=== PATIENT | male | born 1965 | race Caucasian/White ===

== ENCOUNTER 2017-10-31 11:03 | Observation (INO) | payer MEDICARE, MEDICAID, OTHER ==
[2017-10-31 11:43] LABS: ADD MAN DIFF? NO
[2017-10-31 11:46] LABS: BASOPHILS % 0.3 % (0.0-2.0); EOSINOPHILS # 0.1 10^3/ul (0.0-0.5); HEMATOCRIT 38.5 % (42.0-52.0); HEMOGLOBIN 12.8 g/dl (14.0-18.0); LYMPHOCYTES # 1.4 10^3/ul (0.8-2.9); LYMPHOCYTES % 13.9 % (15.0-51.0); MEAN CORPUSCULAR HEMOGLOBIN 31.9 pg (29.0-33.0); MEAN CORPUSCULAR HGB CONC 33.2 g/dl (32.0-37.0); MEAN PLATELET VOLUME 8.8 fl (7.4-10.4); MONOCYTES % 9.4 % (0.0-11.0); NEUTROPHIL # 7.8 10^3/ul (1.6-7.5); PLATELET COUNT 428 10^3/UL (140-415); RED BLOOD COUNT 4.01 10^6/ul (4.70-6.10); RED CELL DISTRIBUTION WIDTH 12.9 % (11.5-14.5)
[2017-10-31 11:46] LABS: WHITE BLOOD COUNT 10.4 10^3/ul (4.8-10.8)
[2017-10-31 12:07] LABS: ANION GAP 15 (8-16); BLOOD UREA NITROGEN 10 mg/dl (7-20); CARBON DIOXIDE 31 mmol/L (21-31); CHLORIDE 97 mmol/L (97-110); CREATININE 0.67 mg/dl (0.61-1.24); GLUCOSE 86 mg/dl (70-220); POTASSIUM 4.1 mmol/L (3.5-5.1); SODIUM 139 mmol/L (135-144)
[2017-10-31 12:19] LABS: TROPONIN-I < 0.010 ng/ml (0.000-0.120)
[2017-10-31] MEDS ORDERED: OLANZAPINE 2.5 MG TAB PO (15:00)
[2017-10-31] MEDS ORDERED: HYDROCODONE/APAP (5/325) TAB PO ×2 (15:00)
[2017-10-31] MEDS ORDERED: morphine 2 MG INJ IV (15:00)
[2017-10-31] MEDS ORDERED: ACETAMINOPHEN 325 MG TAB PO (15:00)
[2017-10-31] MEDS ORDERED: NACL 0.9% 3 ML SYG IV (15:00)
[2017-10-31 17:16] LABS: CREATINE KINASE 47 IU/L (23-200)
[2017-10-31 17:21] LABS: CK INDEX 1.1; CK-MB 0.51 ng/ml (0.0-2.4); TROPONIN-I < 0.010 ng/ml (0.000-0.120)
[2017-10-31] MEDS: FISH OIL 1,000 MG CAP PO (17:28)
[2017-10-31] MEDS: METOPROLOL 25 MG TAB PO (21:00)
[2017-10-31] MEDS: DOCUSATE SODIUM 10 MG/ML (10ML CUP) PO (21:04)
[2017-10-31] MEDS: LAMOTRIGINE 100 MG TAB PO (21:05)
[2017-10-31] MEDS: SENNA TAB PO (21:05)
[2017-10-31] MEDS: carBAMAZepine CHEW 100 MG CHEW PO (21:05)
[2017-10-31] MEDS: LEVETIRACETAM 500 MG TAB PO (21:05)
[2017-11-01 01:41] LABS: CREATINE KINASE 47 IU/L (23-200)
[2017-11-01 01:53] LABS: CK INDEX 1.2; CK-MB 0.58 ng/ml (0.0-2.4); TROPONIN-I < 0.010 ng/ml (0.000-0.120)
[2017-11-01] MEDS: PANTOPRAZOLE (EC) 40 MG TAB PO (05:35)
[2017-11-01] MEDS: ASPIRIN 81 MG TAB PO (08:46)
[2017-11-01] MEDS: DOCUSATE SODIUM 10 MG/ML (10ML CUP) PO ×2 (08:48→21:14)
[2017-11-01] MEDS: LEVETIRACETAM 500 MG TAB PO ×2 (08:48→21:13)
[2017-11-01] MEDS: carBAMAZepine CHEW 100 MG CHEW PO ×3 (08:48→21:13)
[2017-11-01] MEDS: CHOLECALCIFEROL 400 UNITS TAB PO (08:48)
[2017-11-01] MEDS: FISH OIL 1,000 MG CAP PO (08:49)
[2017-11-01] MEDS: METOPROLOL 25 MG TAB PO ×2 (08:49→21:00)
[2017-11-01] MEDS: LAMOTRIGINE 100 MG TAB PO ×2 (08:49→21:14)
[2017-11-01] MEDS: POLYETHYLENE GLYCOL 17 GM PACKET PO (08:50)
[2017-11-01] MEDS: MULTIVITAMINS/MINERALS TAB PO (08:50)
[2017-11-01] MEDS ORDERED: NON-FORMULARY/PATIENT OWN MED (Omega-3 Fatty Acids/Fish Oil (Fish Oil 1,000 mg Capsule) 1 PO (09:00)
[2017-11-01] MEDS: ONDANSETRON 4 MG INJ IV (09:14)
[2017-11-01 09:18] LABS: ADD MAN DIFF? NO
[2017-11-01 09:21] LABS: BASOPHILS % 0.4 % (0.0-2.0); EOSINOPHILS # 0.1 10^3/ul (0.0-0.5); EOSINOPHILS % 1.9 % (0.0-7.0); HEMATOCRIT 36.3 % (42.0-52.0); HEMOGLOBIN 12.5 g/dl (14.0-18.0); LYMPHOCYTES # 1.2 10^3/ul (0.8-2.9); LYMPHOCYTES % 17.1 % (15.0-51.0); MEAN CORPUSCULAR HEMOGLOBIN 32.7 pg (29.0-33.0); MEAN CORPUSCULAR HGB CONC 34.4 g/dl (32.0-37.0); MEAN PLATELET VOLUME 8.9 fl (7.4-10.4); MONOCYTE # 0.6 10^3/ul (0.3-0.9); MONOCYTES % 8.9 % (0.0-11.0); NEUTROPHILS % 71.1 % (39.0-77.0); PLATELET COUNT 386 10^3/UL (140-415); RED BLOOD COUNT 3.82 10^6/ul (4.70-6.10)
[2017-11-01 09:44] LABS: ALANINE AMINOTRANSFERASE 23 IU/L (13-69); ALBUMIN 3.9 g/dl (3.3-4.9); ALBUMIN/GLOBULIN RATIO 1.34; ALKALINE PHOSPHATASE 73 IU/L (42-121); ANION GAP 13 (8-16); ASPARTATE AMINO TRANSFERASE 20 IU/L (15-46); BILIRUBIN,INDIRECT 0.1 mg/dl (0-1.1); BILIRUBIN,TOTAL 0.1 mg/dl (0.2-1.3); BLOOD UREA NITROGEN 8 mg/dl (7-20); CALCIUM 8.9 mg/dl (8.4-10.2); CARBON DIOXIDE 29 mmol/L (21-31); CHLORIDE 101 mmol/L (97-110); CHOL/HDL RATIO 3.5 RATIO; CHOLESTEROL 150 mg/dl (100-200); CREATININE 0.63 mg/dl (0.61-1.24); GLUCOSE 87 mg/dl (70-220); HDL CHOLESTEROL 42 mg/dl (28-71); LDL CHOLESTEROL,CALCULATED 83 mg/dl; MAGNESIUM 2.1 mg/dl (1.7-2.5); PHOSPHORUS 4.2 mg/dl (2.5-4.9); POTASSIUM 4.4 mmol/L (3.5-5.1); SODIUM 139 mmol/L (135-144); TOTAL PROTEIN 6.8 g/dl (6.1-8.1); TRIGLYCERIDES 124 mg/dl (0-149)
[2017-11-01 09:53] LABS: HEMOGLOBIN A1C 5.8 % (0-5.9)
[2017-11-01 10:00] LABS: FREE THYROXINE INDEX (Calc) 1.87 ug/ml (0.65-3.89); T3 UPTAKE 26.3 % (23.5-40.5); T4 (THYROXINE) 7.1 ug/dl (5.5-11.0)
[2017-11-01] MEDS ORDERED: morphine LIQ (10 MG/5 ML) CUP PO (16:30)
[2017-11-01] MEDS: SENNA TAB PO (21:14)
[2017-11-02] MEDS: ONDANSETRON 4 MG INJ IV (04:51)
[2017-11-02] MEDS: PANTOPRAZOLE (EC) 40 MG TAB PO (06:23)
[2017-11-02] MEDS: POLYETHYLENE GLYCOL 17 GM PACKET PO (08:24)
[2017-11-02] MEDS: DOCUSATE SODIUM 10 MG/ML (10ML CUP) PO (08:24)
[2017-11-02] MEDS: ASPIRIN 81 MG TAB PO (08:25)
[2017-11-02] MEDS: LEVETIRACETAM 500 MG TAB PO (08:25)
[2017-11-02] MEDS: MULTIVITAMINS/MINERALS TAB PO (08:25)
[2017-11-02] MEDS: carBAMAZepine CHEW 100 MG CHEW PO ×2 (08:25→14:36)
[2017-11-02] MEDS: FISH OIL 1,000 MG CAP PO (08:25)
[2017-11-02] MEDS: CHOLECALCIFEROL 400 UNITS TAB PO (08:26)
[2017-11-02] MEDS: LAMOTRIGINE 100 MG TAB PO (08:26)
[2017-11-02] MEDS: METOPROLOL 25 MG TAB PO (08:26)
== END 2017-11-02 17:45 ==
LOC: E/R 11:03 → TEL 12:28
DX: R07.9 Chest pain, unspecified (principal); F41.9 Anxiety disorder, unspecified; K21.9 Gastro-esophageal reflux disease without esophagitis; G40.909 Epilepsy, unspecified, not intractable, without status epilepticus; R62.50 Unspecified lack of expected normal physiological development in childhood; Z79.82 Long term (current) use of aspirin; Z88.1 Allergy status to other antibiotic agents; Z88.8 Allergy status to other drugs, medicaments and biological substances
CPT/HCPCS: 36415; 71045; 80048; 80053; 80061; 82550; 82553; 83036; 83735; 84100; 84436; 84443; 84479; 84484; 85025; 92610; 93005; 93306; 99285-25; G0378